=== PATIENT | male | born 1960 ===

== ENCOUNTER → 2017-12-27 | Day surgery (SDC) | payer OTHER ==
--- NOTE | 2017-12-26 16:52 | History and Physical: Surg Cnt ---
History & Physical Date December 26, 2017. Chief Complaint nasal obstruction History of Present Illness The patient is a 57 year old male with complaints of septal deviation, nasal obstruction and loss of smell and taste after nasal fracture last year Additional History Hepatic Disease: No Endocrine Disorder: No Kidney Disease: No Hypertension: No Heart Disease: No Bleeding Tendencies: No Infectious Diseases: No Physical Examination Skin: warm/dry, no rash Eyes: normal inspection, EOMI, sclerae normal ENT: normal ENT inspection, pharynx normal, + pertinent finding (septal deviation to left with obstruction) Head: normocephalic, atraumatic Neck: supple, no adenopathy, trachea midline Respiratory/Chest: lungs clear, normal breath sounds, no respiratory distress Cardiovascular: regular rate, rhythm, no edema, no murmur Abdomen / GI: normal bowel sounds, non tender Back: normal inspection Extremities: normal inspection, normal range of motion Neurologic/Psych: no motor/sensory deficits, alert, normal reflexes, oriented x 3 Diagnosis septal deviation Plan of Treatment septoplasty and celon turbinates
[~2017-12-27] VITALS: Ht 177.8 cm; Wt 100.0 kg
[~2017-12-27] MED LIST: ASPI325T39 PO; ATROPINE SULFATE 0.1 MG/ML 5ML SYR IV PRN; BACITRACIN OINT 15 GM TUBE ONE; CEFAZOLIN 1000MG IV PUSH 7.5 ML IV SCH; CEFAZOLIN 2000MG IV PUSH 15 ML IV STA; DEXAMETHASONE SOD INJ 4 MG/ML VIAL ONE; EpHEDrine SULFATE INJ 50 MG/ML AMP IV PRN; EpHEDrine SULFATE INJ 50 MG/ML AMP ONE; EpINEphrine INJ 1MG/ML AMP 1 MG/ML AMP ONE; FENTANYL CITRATE INJ 50 MCG/1 ML 2 ML VIAL IV PRN; FENTANYL CITRATE INJ 50 MCG/1 ML 2 ML VIAL ONE; FLM4 PO; FLUMAZENIL 0.1 MG/1 ML 10 ML VIAL IV PRN; GELATIN SPONGE 12-7MM ONE; HYDROmorphone INJ 0.5 MG/0.5 ML SYR IV PRN; LABETALOL HCL IV 5 MG/ML 20ML IV PRN; LACTATED RINGER'S 1000ML 1,000 ML IV SCH; LATA0.5S OP; LIDO 2%/EPINEPHRINE 1:100000 20 ML VIAL ONE; LIDOCAINE 4% MPF SOAK 5 ML = 1 DOSE ONE; LIDOCAINE HCL 2% 2 ML VIAL (20MG/ML) ONE; MEPERIDINE HCL 25 MG/ML CARP IV PRN; METO25TA56 PO; MIDAZOLAM HCL 1 MG/ML 2ML VIAL ONE; NALOXONE HCL 0.4 MG/1 ML VIAL/CARP IV PRN; ONDANSETRON INJ 2 MG/ML 2 ML VIAL IV PRN; ONDANSETRON INJ 2 MG/ML 2 ML VIAL ONE; OXYC-57 PO; OXYCODONE/ACETAMINOPHEN 5-325 TAB PO PRN; PATIENT'S ALLERGY INFO NEEDS ENTERED SCH; PHENYLEPHRINE 100MCG/ML 5ML SYR IV PRN; PROPOFOL IV EMULSION 10 MG/ML 20 ML VIAL ONE; SODIUM CHLORIDE 0.9% 1000ML 1,000 ML IV SCH; SODIUM CHLORIDE 0.9% INJ 10 ML VIAL ONE
[2017-12-27 10:26] VITALS: Ht 177.8 cm; Wt 100.0 kg
--- NOTE | 2017-12-27 10:57 | History & Physical Bridge Note ---
H&P Re-Evaluation Bridge Note: I have examined the patient, reviewed the History & Physical and in the interval since the performance of the History & Physical I have noted the following changes of clinical significance: No changes noted
--- NOTE | 2017-12-27 12:53 | Discharge Instructions-SurgCtr ---
Discharge Instructions Date of Service December 27, 2017. Visit Reason for Visit: Septal Deviation Discharge Discharge Diagnosis / Problem: same Discharge Goals Goal(s): Improve function Activity Recommendations Activity Limitations: resume your previous activity Anesthesia . Post Anesthesia Instructions: If you have had General Anesthesia or IV Sedation: * Do not drive today. * Resume driving when surgeon permits. * Do not make important decisions or sign legal documents today. * Call surgeon for: 1. Temperature elevations greater than 101 degrees F. 2. Uncontrollable pain. 3. Excessive bleeding. 4. Persistent nausea and vomiting. 5. Medication intolerance (nausea, vomiting or rash). * For nausea and vomiting use only clear liquids such as: tea, soda, bouillon until nausea subsides, then gradually increase diet as tolerated. * If you have any concerns or questions, call your surgeon's office. If physician is unavailable and it is an emergency, call 911 or go to the nearest emergency room. . Instructions / Follow-Up Instructions / Follow-Up ACTIVITY RECOMMENDATIONS: * Being up and around is good, but no strenuous activity, heavy lifting or physical exertion for one week. * Keep your head elevated 30 degrees when lying down or sleeping. * Do not blow your nose for 48 hours, sniff back instead. * Avoid hot showers. OVER THE COUNTER MEDICATIONS: * You may use Tylenol * Avoid aspirin or aspirin containing products, e.g. as they may increase bleeding. SPECIAL CARE INSTRUCTIONS: * Expect to have bloody drainage from your nose and/or down your throat for one to three days. Change drip pad as needed. * Begin irrigating your nose with saline solution today, at least six to ten times per day and sniff back to help remove old clots or crust. * You may experience nasal and facial congestion, pain and pressure, this is normal. * Please call with any significant and/or progressive pain, redness, swelling around the eyes, visual changes, fever of 101.5 degrees F, active bleeding or any problems or concerns. * If active bleeding occurs, spray the nose three times at one minute intervals with Afrin spray and call or cell phone: . If unable to reach the doctor, go to the nearest Emergency Department. Special Diet: * Avoid extremely hot fluids. FOLLOW UP VISIT: Follow-up Visit with Dr. Angel If not already scheduled, please call to schedule. Diet Recommendations Home Diet: resume previous diet Pending Studies Studies pending at discharge: no Medical Emergencies . Who to Call and When: Medical Emergencies: If at any time you feel your situation is an emergency, please call 911 immediately. . Non-Emergent Contact Non-Emergency issues call your: Primary Care Provider . . "Provider Documentation" section prepared by Elizabeth Hurt PA Drug Monitoring Program Search Results: no issues identified
--- NOTE | 2017-12-27 13:27 | [facility] Post Operative Brief Note ---
Immediate Operative Summary Operative Date December 27, 2017. Pre-Operative Diagnosis Septal Deviation Post-Operative Diagnosis same Procedure(s) Performed Septoplasty, Celon Turbinates Surgeon Dr. Farhad Ortiz Community Relations Liaison Surgeon(s) 0 Estimated Blood Loss 15CC Findings Consistent with Post-Op Diagnosis Specimens NONE Drains None Anesthesia Type General Complication(s) none Disposition Accompanied Pt To Recover: yes Disposition: Recovery Room / PACU Overlapping Procedure I was immediately available: during the entire case
--- NOTE | 2017-12-27 14:06 | Anesthesia Progress Nt - [facility] ---
Anesthesia Post Op Note Date & Time December 27, 2017 at 14:06 Vital Signs Pain Intensity: 0 Vital Signs Past 12 Hours Date Time Temp Pulse Resp B/P (MAP) Pulse Ox O2 Delivery O2 Flow Rate FiO2 12/27/17 14:03 36.4 12/27/17 14:01 127/71 (79) 12/27/17 14:00 65 16 89 12/27/17 14:00 65 16 12/27/17 13:56 122/74 (86) 12/27/17 13:55 66 15 96 12/27/17 13:55 66 15 12/27/17 13:51 124/75 (92) 12/27/17 13:50 Room Air 12/27/17 13:50 70 14 12/27/17 13:50 71 14 98 12/27/17 13:46 120/70 (77) 12/27/17 13:45 72 14 12/27/17 13:45 71 14 98 12/27/17 13:41 119/67 (78) 12/27/17 13:40 76 18 12/27/17 13:40 76 18 98 12/27/17 13:38 117/66 (75) 12/27/17 13:35 36.2 79 16 117/ (66) 98 Diffusion Mask 6 12/27/17 10:30 36.6 55 16 137/83 (101) 94 Room Air Notes Mental Status: alert / awake / arousable, participated in evaluation Pt Amnestic to Procedure: Yes Nausea / Vomiting: adequately controlled Pain: adequately controlled Airway Patency, RR, SpO2: stable & adequate BP & HR: stable & adequate Hydration State: stable & adequate Anesthetic Complications: no major complications apparent
[2017-12-27 14:33] VITALS: BP 110/72; PULSE 69; TEMP 36.4; O2SAT 95
--- NOTE | 2017-12-27 16:44 | OPERATIVE REPORT ---
DATE OF OPERATION: 12/27/2017 PREOPERATIVE DIAGNOSES: Septal deviation and nasal obstruction. POSTOPERATIVE DIAGNOSES: Same. PROCEDURES: Septoplasty and radiofrequency volume reduction of the inferior turbinates. SURGEON: Prachi Ortiz MD. ANESTHESIA: General LMA. COMPLICATIONS: None. BLOOD LOSS: 15 mL. HISTORY OF PRESENT ILLNESS: A 57-year-old gentleman with a history of nasal fracture a year ago, status post reduction, however, complains of persistent obstruction of the left nostril and has septal deviation to the left. DESCRIPTION OF PROCEDURE: The patient was brought to the operating room and placed in supine position. General anesthesia was induced using the LMA, prepped and draped in the usual sterile manner. Nose is decongested using cottonoids with a topical solution of 4 mL of 4% Xylocaine mixed with 1 mL of epinephrine. Injection of 2% Xylocaine in 1:100,000 strength epinephrine was also used. The inferior turbinates were treated with radiofrequency volume reduction using the Job36 machine with the settings at 18 and creating 4 lesions in each inferior turbinate. The inferior turbinates were fractured laterally. The left hemitransfixion incision was made. Mucoperichondrium was elevated off the left side of septum. Superior and inferior tunnels were elevated isolating a bony cartilaginous spur projecting to the left. The spur inferiorly was removed using the 15 blade to cut the cartilaginous part and then fracturing the bony spur superiorly and removing the bony spur with the Amrita dissector and Boyd forceps. Bilateral posterior tunnels were elevated isolating the ethmoid plate. Deviated portion of the ethmoid plate was removed using the Juan-Torres rongeurs, and a large bony spur projecting at the left posteriorly was removed using the Boyd forceps. The septum was closed using a continuous mattress suture of 4-0 plain gut. Anterior packing of Gelfoam was placed on the left side. The patient tolerated the procedure well and was taken to the recovery area in satisfactory condition. I attest to the content of the Intraoperative Record and any orders documented therein. Any exception s are noted below.
== END | disposition home or self-care (01) ==
LOC: X.SURG 10:16
PROVIDERS: ATTEND Otolaryngology
DX: J34.2 Deviated nasal septum (principal); J34.89 Other specified disorders of nose and nasal sinuses; F17.200 Nicotine dependence, unspecified, uncomplicated; F41.9 Anxiety disorder, unspecified; F32.9 Major depressive disorder, single episode, unspecified; Z86.19 Personal history of other infectious and parasitic diseases; Z98.890 Other specified postprocedural states